=== PATIENT | male | born 1975 | race American Indian/Alaskan Native ===

== ENCOUNTER 2017-02-26 18:45 | Emergency (ER) | payer SELFPAY ==
[2017-02-26 19:42] LABS: Eosinophils % (Auto) 1.4 % (0.0-4.3); Hematocrit 40.9 % (35.5-45.6); Hemoglobin 13.1 gm/dl (11.8-15.2); Mean Corpuscular HGB Conc 32 % (32-34); Mean Corpuscular Hemoglobin 26 pg (28-32); Mean Corpuscular Volume 82 fl (84-94); Platelet Count 183 K/mm3 (140-440); Red Blood Count 4.97 M/mm3 (3.65-5.03); Red Cell Distribution Width 14.2 % (13.2-15.2); White Blood Count 6.2 K/mm3 (4.5-11.0)
[2017-02-26 19:59] LABS: Anion Gap 16 mmol/L; BUN/Creatinine Ratio 8.18; Blood Urea Nitrogen 9 mg/dL (9-20); Calcium 9.2 mg/dL (8.4-10.2); Carbon Dioxide 26 mmol/L (22-30); Chloride 102.9 mmol/L (98-107); Glucose 96 mg/dL (75-100); Potassium 4.6 mmol/L (3.6-5.0); Sodium 140 mmol/L (137-145)
[2017-02-26 20:54] VITALS: BP 157/102
[2017-02-26] MEDS ORDERED: BENADRYL IV ONE (21:27)
[2017-02-26] MEDS ORDERED: REGLAN IV ONE (21:27)
[2017-02-26] MEDS ORDERED: NACL 0.9% 1000 ML 1,000 ML IV ONE (21:28)
--- NOTE | 2017-02-26 21:29 | Emergency Department Report ---
ED General Adult HPI - General Chief complaint: High BP Stated complaint: HIGH BLOOD PRESSURE/HEADACHE Time Seen by Provider: 02/26/17 21:26 Source: patient Mode of arrival: Ambulatory Limitations: No Limitations - History of Present Illness Initial comments: Patient is a 41-year-old male past medical history of high blood pressure who presents with headache. Patient states that his headache has been going on for the last 3 days it is a 7 out of 10 is located in his temporal region of his head. It is an achy type of pain and it doesn't radiate. Wrists and quite makes the headache better noise and light makes it worse. Patient states that he gets headaches like these are often when his blood pressure is high. He has not taken any [id number] medications. There was no sudden onset to the headache. The headache wasn't associated with any activity there is no nausea or vomiting. Severity scale (0 -10): 8 - Related Data Allergies Allergy/AdvReac Type Severity Reaction Status Date / Time aspirin AdvReac Bleeding Verified 02/26/17 19:22 ED Review of Systems ROS: Stated complaint: HIGH BLOOD PRESSURE/HEADACHE Other details as noted in HPI Constitutional: denies: chills, fever Eyes: denies: eye pain, eye discharge, vision change ENT: denies: ear pain, throat pain Respiratory: denies: cough, shortness of breath, wheezing Cardiovascular: denies: chest pain, palpitations Endocrine: no symptoms reported Gastrointestinal: denies: abdominal pain, nausea, diarrhea Genitourinary: denies: urgency, dysuria Musculoskeletal: denies: back pain, joint swelling, arthralgia Skin: denies: rash, lesions Neurological: headache Psychiatric: denies: anxiety, depression Hematological/Lymphatic: denies: easy bleeding, easy bruising ED Past Medical Hx - Past Medical History Previous Medical History?: Yes Hx Hypertension: Yes Hx Diabetes: Yes Additional medical history: Obesity, High Stress, Lack of exercise. Knee Pain - Surgical History Past Surgical History?: Yes Additional Surgical History: Hernia - Social History Smoking Status: Never Smoker Substance Use Type: None ED Physical Exam - General Limitations: No Limitations General appearance: alert, in no apparent distress - Head Head exam: Present: atraumatic, normocephalic - Eye Eye exam: Present: normal appearance - ENT ENT exam: Present: mucous membranes moist - Neck Neck exam: Present: normal inspection - Respiratory Respiratory exam: Present: normal lung sounds bilaterally. Absent: respiratory distress - Cardiovascular Cardiovascular Exam: Present: regular rate, normal rhythm. Absent: systolic murmur, diastolic murmur, rubs, gallop - GI/Abdominal GI/Abdominal exam: Present: soft, normal bowel sounds - Rectal Rectal exam: Present: deferred - Extremities Exam Extremities exam: Present: normal inspection - Back Exam Back exam: Present: normal inspection - Neurological Exam Neurological exam: Present: alert, oriented X3 - Psychiatric Psychiatric exam: Present: normal affect, normal mood - Skin Skin exam: Present: warm, dry, intact, normal color. Absent: rash ED Course Vital Signs 02/26/17 02/26/17 19:57 20:52 Temperature 98.6 F Pulse Rate 61 68 Respiratory 18 16 Rate Blood Pressure 150/106 157/102 [Right] O2 Sat by Pulse 100 97 Oximetry - Reevaluation(s) Reevaluation #1: 02/26/17 22:58 The patient states headache is much better and he would like to leave discussed with patient about taking his blood pressure medications he understands. ED Medical Decision Making - Lab Data Result diagrams: 02/26/17 19:28 02/26/17 19:28 Laboratory Results - last 24 hr 02/26/17 02/26/17 02/26/17 19:28 19:28 19:28 WBC 6.2 RBC 4.97 Hgb 13.1 Hct 40.9 MCV 82 L MCH 26 L MCHC 32 RDW 14.2 Plt Count 183 Lymph % (Auto) 24.9 [place] % (Auto) 7.7 H Eos % (Auto) 1.4 Baso % (Auto) 1.0 Lymph # 1.5 [place] # 0.5 Eos # 0.1 Baso # 0.1 Seg Neutrophils % 65.0 Seg Neutrophils # 4.0 ESR 4 Sodium 140 Potassium 4.6 Chloride 102.9 Carbon Dioxide 26 Anion Gap 16 BUN 9 Creatinine 1.1 Estimated GFR > 60 BUN/Creatinine Ratio 8.18 Glucose 96 Calcium 9.2 Troponin T < 0.010 - EKG Data 02/26/17 23:00 EKG shows sinus bradycardia with sinus arrhythmia no T-wave inversions or ST segment elevation - Medical Decision Making Chief medical diagnosis: Tension headache Differential medical diagnosis: Migraine headache, Sinus headache, headache secondary to hypertension Due to patient's history ankle symptoms it is extremely unlikely that headache requires CT head. Patient had a CT had last month when he had a more severe headache. And it was negative he states that this headache is not nearly as bad. Critical care attestation.: If time is entered above; I have spent that time in minutes in the direct care of this critically ill patient, excluding procedure time. ED Disposition Clinical Impression: Tension headache HTN (hypertension) Qualifiers: Hypertension type: unspecified Qualified Code(s): I10 - Essential (primary) hypertension Disposition: DC- TO HOME OR SELFCARE Is pt being admited?: No Does the pt Need Aspirin: No Condition: Good Instructions: Hypertension (ED), Tension Headache (ED) Referrals: REBECA ASHBY DO [Primary Care Provider] - 3-5 Days Time of Disposition: 23:03
--- NOTE | 2017-02-27 07:42 | XRay Report ---
ROUTINE CHEST, TWO VIEWS: HISTORY: Shortness of breath. The trachea, heart, mediastinal contour, lung babb and bony thorax are unremarkable. IMPRESSION: Unremarkable chest x-ray.
== END 2017-02-26 23:56 | disposition home or self-care (01) ==
LOC: ED 18:45
DX: G44.209 Tension-type headache, unspecified, not intractable (principal); I10 Essential (primary) hypertension; E11.9 Type 2 diabetes mellitus without complications; Z88.6 Allergy status to analgesic agent
CPT/HCPCS: 36415; 71020; 80048; 84484; 85025; 85652; 86140; 93005; 93010; 96361; 96374; 96375; 99284; J1200; J2765; J7030